=== PATIENT | male | born 1960 | race Caucasian/White ===

== ENCOUNTER 2023-08-23 06:39 | Day surgery (SDC) | payer BC, OTHER ==
[~2023-08-23 06:39] MED LIST: Lactated Ringers 1,000 ML IV SCH
[2023-08-23] MEDS ORDERED: propofoL 50 ML ONE (06:51)
[2023-08-23] MEDS ORDERED: Ondansetron 4 MG/2 ML SDV ONE (06:55)
[2023-08-23] MEDS ORDERED: Lidocaine 2% 5 ML SDV ONE (06:55)
[2023-08-23] MEDS ORDERED: Ketorolac 30 MG/ML SDV ONE (08:18)
== END 2023-08-23 09:20 | disposition home or self-care (01) ==
LOC: MW.SDS 06:39
PROVIDERS: ATTEND Surgery
DX: R19.5 Other fecal abnormalities (principal); D12.6 Benign neoplasm of colon, unspecified; K63.5 Polyp of colon; K57.30 Diverticulosis of large intestine without perforation or abscess without bleeding; F17.210 Nicotine dependence, cigarettes, uncomplicated; Z79.899 Other long term (current) drug therapy
CPT/HCPCS: 45380; 45385; J1885; J2405; J2704; J7120; 00811; J3490